=== PATIENT | female | born 1980 | race Caucasian/White ===

== ENCOUNTER 2020-06-28 10:30 | Emergency (ER) | payer MEDICAID, OTHER ==
[2020-06-28] MEDS ORDERED: Acetaminophen 500 MG TAB ONE (10:52)
[2020-06-29 14:58] LABS: SARS-CoV-2 MS2 Positive; SARS-CoV-2 N Gene Negative; SARS-CoV-2 S Gene Negative; SARS-CoV-2 by NAA Not Detected (NotDetected); SARS-CoV-2 orf1ab Negative
== END 2020-06-28 11:24 | disposition home or self-care (01) ==
LOC: BURERS 10:30
DX: R05 Cough (principal); R51 Headache; R09.81 Nasal congestion; Z20.828 Contact with and (suspected) exposure to other viral communicable diseases; F17.210 Nicotine dependence, cigarettes, uncomplicated
CPT/HCPCS: 87635; 87804; 99284; U0003

== ENCOUNTER 2022-05-29 09:33 | Emergency (ER) | payer MEDICAID, SELFPAY ==
[2022-05-29] MEDS ORDERED: Cyclobenzaprine 10 MG TAB ONE (09:55)
[2022-05-29] MEDS ORDERED: Ketorolac Tromethamine 60 MG/2 ML VIAL ONE (09:55)
== END 2022-05-29 10:01 | disposition home or self-care (01) ==
LOC: BURERS 09:33
DX: S29.012A Strain of muscle and tendon of back wall of thorax, initial encounter (principal); F17.210 Nicotine dependence, cigarettes, uncomplicated; X58.XXXA Exposure to other specified factors, initial encounter
CPT/HCPCS: 96372; 99283; J1885

== ENCOUNTER 2024-08-01 09:40 | Emergency (ER) | payer OTHER, SELFPAY ==
[2024-08-01] MEDS ORDERED: Lorazepam 2 MG/ML VIAL ONE (09:50)
== END 2024-08-01 10:27 ==
LOC: BURERS 09:40 → EEVIPCON 09:40 → BURERS 10:27
DX: F41.9 Anxiety disorder, unspecified (principal); F17.210 Nicotine dependence, cigarettes, uncomplicated
CPT/HCPCS: 93005; 96372; 99285; J2060